=== PATIENT | male | born 1945 | race Caucasian/White ===

== ENCOUNTER 2017-02-11 20:54 | Emergency (ER) | payer MEDICARE ==
[2017-02-11 21:08] VITALS: RESP 18; TEMP 98
[2017-02-11] MEDS ORDERED: MORPHINE SULFATE 4 MG/ML SYRINGE IV STA (21:18)
--- NOTE | 2017-02-11 21:21 | ED ---
General Adult HPI - General Chief complaint: Fall Stated complaint: Fall Time Seen by Provider: 02/11/17 21:01 Source: patient, family, EMS, RN notes reviewed Mode of arrival: EMS Limitations: no limitations - History of Present Illness Initial comments: Patient is a pleasant 71-year-old male presenting to the emergency department following a fall. Patient has had some fatigue and generalized weakness over the past few months, worse the past couple of days. Patient does have chronic right-sided weakness from head and neck injury years ago. Patient states today his right leg gave out on him. Patient did hear a snap and is concerned he may have broken his ankle. Patient states discomfort seems to be getting somewhat worse. Patient did not attempt to ambulate following the injury. Patient states he did hit his head however was minimal. Patient did not lose consciousness. No new weakness since he hit his head. No confusion. - Related Data Home Medications Medication Instructions Recorded Confirmed Ascorbic Acid [Vitamin C] 500 mg PO DAILY 02/11/17 02/11/17 L.acidoph,Paracasei, B.lactis 1 cap PO DAILY 02/11/17 02/11/17 [Probiotic] Allergies Allergy/AdvReac Type Severity Reaction Status Date / Time No Known Allergies Allergy Verified 02/11/17 21:33 Review of Systems ROS Statement: Those systems with pertinent positive or pertinent negative responses have been documented in the HPI. ROS Other: All systems not noted in ROS Statement are negative. Constitutional: Denies: fever Eyes: Denies: eye pain ENT: Denies: ear pain Respiratory: Denies: cough Cardiovascular: Denies: chest pain Endocrine: Reports: fatigue Gastrointestinal: Denies: abdominal pain Genitourinary: Denies: urgency Musculoskeletal: Denies: back pain Skin: Denies: rash Neurological: Denies: headache, confusion Past Medical History Past Medical History: No Reported History, CVA/TIA, Myocardial Infarction ([place]) History of Any Multi-Drug Resistant Organisms: None Reported Past Surgical History: Adenoidectomy Additional Past Surgical History / Comment(s): Spinal Fusion, Past Psychological History: No Psychological Hx Reported Smoking Status: Never smoker Past Alcohol Use History: None Reported Past Drug Use History: None Reported General Exam Limitations: no limitations General appearance: alert, in no apparent distress Head exam: Present: atraumatic Eye exam: Present: normal appearance, PERRL ENT exam: Present: normal oropharynx Neck exam: Present: normal inspection. Absent: tenderness Respiratory exam: Present: normal lung sounds bilaterally Cardiovascular Exam: Present: regular rate, normal rhythm GI/Abdominal exam: Present: soft. Absent: tenderness Extremities exam: Present: tenderness (Diffuse right leg. Mostly at the right ankle. No foot tenderness.) Neurological exam: Present: alert, oriented X3 Expanded Speech: Present: fluid speech Motor strength exam: RUE: 4, LUE: 5, RLE: 3 (Exam limited by pain and chronic weakness), LLE: 5 Psychiatric exam: Present: normal affect, normal mood Skin exam: Absent: rash Course Vital Signs 02/11/17 02/11/17 20:58 22:19 Temperature 98.0 F Pulse Rate 86 89 Respiratory 18 18 Rate Blood Pressure 216/104 196/92 O2 Sat by Pulse 96 98 Oximetry - Reevaluation(s) Reevaluation #1: 02/11/17 21:19 Patient is recommended to have head CT however does refuse this. Patient states he does not necessarily. EKG Findings - EKG Comments: EKG Findings:: Normal sinus rhythm at 82. MN 160. QRS 100. QT 424. QTC 495. Normal axis. Normal QRS. Nonspecific ST-T. Medical Decision Making - Medical Decision Making Patient reevaluated and resting comfortably in bed. Patient updated on results including hyperglycemia. Patient is informed he meets criteria for diagnosis of diabetes. Patient is advised to have close follow-up regarding this for further care including medication and dietary changes. Patient does demonstrate understanding however is refusing follow-up. Patient is strongly advised to do so and explained the risks of uncontrolled diabetes. Patient does demonstrate medical decision making. Patient states he is familiar with diabetes and has had other multiple problems including heart attacks and strokes already. - Lab Data Result diagrams: 02/11/17 21:35 02/11/17 21:35 Lab Results 02/11/17 02/11/17 02/11/17 Range/Units 21:35 21:35 21:35 WBC 10.1 (3.8-10.6) k/uL RBC 4.95 (4.30-5.90) m/uL Hgb 16.2 (13.0-17.5) gm/dL Hct 46.3 (39.0-53.0) % MCV 93.5 (80.0-100.0) fL MCH 32.7 (25.0-35.0) pg MCHC 35.0 (31.0-37.0) g/dL RDW 13.0 (11.5-15.5) % Plt Count 161 (150-450) k/uL Neutrophils % 59 % Lymphocytes % 27 % Monocytes % 8 % Eosinophils % 2 % Basophils % 1 % Neutrophils # 6.0 (1.3-7.7) k/uL Lymphocytes # 2.8 (1.0-4.8) k/uL Monocytes # 0.8 (0-1.0) k/uL Eosinophils # 0.2 (0-0.7) k/uL Basophils # 0.1 (0-0.2) k/uL PT (9.0-12.0) sec INR (<1.1) APTT (22.0-30.0) sec Sodium 135 L (137-145) mmol/L Potassium 4.2 (3.5-5.1) mmol/L Chloride 97 L (98-107) mmol/L Carbon Dioxide 26 (22-30) mmol/L Anion Gap 12 mmol/L BUN 17 (9-20) mg/dL Creatinine 1.00 (0.66-1.25) mg/dL Est GFR (MDRD) Af Amer >60 (>60 ml/min/1.73 sqM) Est GFR (MDRD) Non-Af >60 (>60 ml/min/1.73 sqM) Glucose 257 H (74-99) mg/dL Calcium 9.3 (8.4-10.2) mg/dL Phosphorus 3.0 (2.5-4.5) mg/dL Magnesium 1.8 (1.6-2.3) mg/dL Total Bilirubin 2.8 H (0.2-1.3) mg/dL AST 20 (17-59) U/L ALT 29 (21-72) U/L Alkaline Phosphatase 82 (38-126) U/L Total Creatine Kinase 96 (55-170) U/L CK-MB (CK-2) 1.1 (0.0-2.4) ng/mL CK-MB (CK-2) Rel Index 1.1 Troponin I 0.029 (0.000-0.034) ng/mL Total Protein 7.2 (6.3-8.2) g/dL Albumin 4.0 (3.5-5.0) g/dL TSH 0.825 (0.465-4.680) mIU/L Free T4 1.41 (0.78-2.19) ng/dL Free T3 pg/mL 3.3 (2.8-5.3) pg/ml Urine Color Urine Appearance (Clear) Urine pH (5.0-8.0) Ur Specific [place] (1.001-1.035) Urine Protein (Negative) Urine Glucose (UA) (Negative) Urine Ketones (Negative) Urine Blood (Negative) Urine Nitrite (Negative) Urine Bilirubin (Negative) Urine Urobilinogen (<2.0) mg/dL Ur Leukocyte Esterase (Negative) 02/11/17 02/11/17 Range/Units 21:35 21:35 WBC (3.8-10.6) k/uL RBC (4.30-5.90) m/uL Hgb (13.0-17.5) gm/dL Hct (39.0-53.0) % MCV (80.0-100.0) fL MCH (25.0-35.0) pg MCHC (31.0-37.0) g/dL RDW (11.5-15.5) % Plt Count (150-450) k/uL Neutrophils % % Lymphocytes % % Monocytes % % Eosinophils % % Basophils % % Neutrophils # (1.3-7.7) k/uL Lymphocytes # (1.0-4.8) k/uL Monocytes # (0-1.0) k/uL Eosinophils # (0-0.7) k/uL Basophils # (0-0.2) k/uL PT 10.9 (9.0-12.0) sec INR 1.1 (<1.1) APTT 23.5 (22.0-30.0) sec Sodium (137-145) mmol/L Potassium (3.5-5.1) mmol/L Chloride (98-107) mmol/L Carbon Dioxide (22-30) mmol/L Anion Gap mmol/L BUN (9-20) mg/dL Creatinine (0.66-1.25) mg/dL Est GFR (MDRD) Af Amer (>60 ml/min/1.73 sqM) Est GFR (MDRD) Non-Af (>60 ml/min/1.73 sqM) Glucose (74-99) mg/dL Calcium (8.4-10.2) mg/dL Phosphorus (2.5-4.5) mg/dL Magnesium (1.6-2.3) mg/dL Total Bilirubin (0.2-1.3) mg/dL AST (17-59) U/L ALT (21-72) U/L Alkaline Phosphatase (38-126) U/L Total Creatine Kinase (55-170) U/L CK-MB (CK-2) (0.0-2.4) ng/mL CK-MB (CK-2) Rel Index Troponin I (0.000-0.034) ng/mL Total Protein (6.3-8.2) g/dL Albumin (3.5-5.0) g/dL TSH (0.465-4.680) mIU/L Free T4 (0.78-2.19) ng/dL Free T3 pg/mL (2.8-5.3) pg/ml Urine Color Yellow Urine Appearance Clear (Clear) Urine pH 6.5 (5.0-8.0) Ur Specific [place] 1.007 (1.001-1.035) Urine Protein Trace H (Negative) Urine Glucose (UA) 4+ H (Negative) Urine Ketones 1+ H (Negative) Urine Blood Negative (Negative) Urine Nitrite Negative (Negative) Urine Bilirubin Negative (Negative) Urine Urobilinogen <2.0 (<2.0) mg/dL Ur Leukocyte Esterase Negative (Negative) - Radiology Data Radiology results: image reviewed (Chest x-ray, pelvic x-ray, right femur, right tib-fib, and right x-ray of the ankle show no acute abnormality.) Disposition Clinical Impression: Fall, Hyperglycemia Disposition: HOME SELF-CARE Condition: Stable Instructions: Fall Prevention for Older Adults (ED), Type 2 Diabetes in Adults (ED) Additional Instructions: Please follow-up with primary care physician in the next day or 2 for recheck. It is important that you have better control of your blood sugar and will likely need medication. Please make dietary changes including sugar restriction. Return for increased pain, weakness, worsening symptoms or other concerns. Referrals: None,Stated [Primary Care Provider] - 1-2 days Satish Dawson MD [STAFF PHYSICIAN] - 1-2 days Time of Disposition: 23:07
[2017-02-11 22:07] LABS: Appearance,Urine Clear (Clear); Bilirubin,Urine Negative (Negative); Glucose,Urine (UA) 4+ (Negative); Ketones,Urine 1+ (Negative); Leukocyte Esterase,Urine Negative (Negative); Nitrite,Urine Negative (Negative); PH, Urine 6.5 (5.0-8.0); Protein,Urine Trace (Negative); Specific Gravity,Urine 1.007 (1.001-1.035); UA Billing (MACRO vs. MICRO) CHEM; Urobilinogen,Urine <2.0 mg/dL (<2.0)
[2017-02-11 22:10] LABS: ALT 29 U/L (21-72); AST 20 U/L (17-59); Alkaline Phosphatase 82 U/L (38-126); Anion Gap 12 mmol/L; Blood Urea Nitrogen 17 mg/dL (9-20); Calcium 9.3 mg/dL (8.4-10.2); Carbon Dioxide 26 mmol/L (22-30); Chloride 97 mmol/L (98-107); Glucose 257 mg/dL (74-99); Magnesium 1.8 mg/dL (1.6-2.3); Non-African American GFR(MDRD) >60 (>60 ml/min/1.73 sqM); Potassium 4.2 mmol/L (3.5-5.1); Sodium 135 mmol/L (137-145); Total Bilirubin 2.8 mg/dL (0.2-1.3); Total Protein 7.2 g/dL (6.3-8.2)
[2017-02-11 22:12] LABS: INR 1.1 (<1.1); Partial Thromboplastin Time 23.5 sec (22.0-30.0); Prothrombin Time 10.9 sec (9.0-12.0)
[2017-02-11 22:13] LABS: Basophils # (A) 0.1 k/uL (0-0.2); Basophils % (A) 1 %; CH 33.1; CHCM 35.6; Eosinophils # (A) 0.2 k/uL (0-0.7); Eosinophils % (A) 2 %; HCT 46.3 % (39.0-53.0); HDW 2.72; HGB 16.2 gm/dL (13.0-17.5); Luc # (Auto) 0.34; Luc % (Auto) 3; Lymphocytes # (A) 2.8 k/uL (1.0-4.8); Lymphocytes % (A) 27 %; MCH 32.7 pg (25.0-35.0); MCV 93.5 fL (80.0-100.0); Mean Platelet Volume 7.2; Monocytes # (A) 0.8 k/uL (0-1.0); Monocytes % (A) 8 %; Neutrophils % (A) 59 %; RBC 4.95 m/uL (4.30-5.90); WBC 10.1 k/uL (3.8-10.6)
[2017-02-11 22:31] LABS: Creatine Kinase MB 1.1 ng/mL (0.0-2.4); Troponin I 0.029 ng/mL (0.000-0.034)
--- NOTE | 2017-02-11 22:33 | XR ---
EXAM: XR Chest, 2 Views CLINICAL HISTORY: Reason: Weakness TECHNIQUE: Frontal and lateral views of the chest. COMPARISON: No relevant prior studies available. FINDINGS: Lungs: Pulmonary vasculature is within normal limits. Lungs are clear of focal infiltrates or consolidations. Pleural space: No evidence of pleural effusion or pneumothorax. Heart: Heart size is upper limits of normal. Mediastinum: Unremarkable. Bones/joints: Degenerative changes involve the acromioclavicular joints bilaterally. Vasculature: Thoracic aorta is mildly elongated. IMPRESSION: No evidence of active chest disease.
--- NOTE | 2017-02-11 22:36 | XR ---
EXAM: XR Right Femur, 2 Views CLINICAL HISTORY: Reason: Pain TECHNIQUE: Frontal and lateral views of the right femur. COMPARISON: No relevant prior studies available. FINDINGS: Bones/joints: Mild osteoarthritis involves the right hip. No evidence of femoral fracture or dislocation. Soft tissues: Unremarkable. IMPRESSION: No evidence of fracture or dislocation.
--- NOTE | 2017-02-11 22:39 | XR ---
EXAM: XR Pelvis, 1 View CLINICAL HISTORY: Reason: Pain TECHNIQUE: Frontal view of the pelvis. COMPARISON: No relevant prior studies available. FINDINGS: Bones/joints: Sacroiliac joints are intact bilaterally. No evidence of pelvic fracture or dislocation. No osteolytic, osteoblastic or bony destructive process is identified. Soft tissues: Unremarkable. IMPRESSION: No acute bony joint abnormalities.
--- NOTE | 2017-02-11 22:43 | XR ---
EXAM: XR Right Tibia and Fibula, 2 Views CLINICAL HISTORY: Reason: Pain TECHNIQUE: Frontal and lateral views of the right tibia and fibula. COMPARISON: No relevant prior studies available. FINDINGS: Bones/joints: Tibia and fibula are intact. No evidence of fracture, dislocation or bony erosion. Soft tissues: Diffuse soft tissue edematous changes identified about the calf. There are several scattered soft tissue calcifications in the mid and distal calf. No radiopaque foreign body. IMPRESSION: Diffuse soft tissue swelling about the calf. No evidence of acute fracture or dislocation.
--- NOTE | 2017-02-11 22:45 | XR ---
EXAM: XR Right Ankle Complete, 3 or More Views CLINICAL HISTORY: Reason: Pain TECHNIQUE: Frontal, lateral and oblique views of the right ankle. COMPARISON: No relevant prior studies available. FINDINGS: Bones/joints: No evidence of fracture, dislocation or bony erosion. Mild calcaneal spurring. Soft tissues: Diffuse soft tissue swelling and edematous changes about the ankle. IMPRESSION: Diffuse soft tissue swelling and edematous changes about the ankle. No acute bone or joint abnormalities.
[2017-02-11 23:44] VITALS: BP 181/99; PULSE 83
== END 2017-02-11 23:44 | disposition home or self-care (01) ==
LOC: EC 20:54
DX: R73.9 Hyperglycemia, unspecified (principal); M79.604 Pain in right leg; R53.1 Weakness; R53.83 Other fatigue; Z79.899 Other long term (current) drug therapy; W01.0XXA Fall on same level from slipping, tripping and stumbling without subsequent striking against object, initial encounter; Y92.000 Kitchen of unspecified non-institutional (private) residence as the place of occurrence of the external cause; Y93.G1 Activity, food preparation and clean up
CPT/HCPCS: 99284; 96374; 36415; 93005; 84439; 84481; 80053; 82550; 82553; 83735; 84100; 84443; 84484; 85025; 85610; 85730; 81003; 71020; 72170; 73552; 73590; 73610; J2270

== ENCOUNTER 2017-02-12 00:52 | Emergency (ER) | payer MEDICARE ==
--- NOTE | 2017-02-12 01:13 | ED ---
CPR HPI - General Stated Complaint: arrest Source: family, EMS Mode of arrival: EMS Limitations: altered mental status (Unresponsive) - History of Present Illness Initial Comments: This patient is a 71-year-old man who is brought in by EMS after he collapsed at home and became unresponsive. The history is given from EMS and from the patient's partner of 6 years. He reportedly was seen here this afternoon for a right ankle injury. It is reported that he had tripped, twisted his right ankle , and became concerned that it may be broken, as he was having a hard time putting any weight on it. He was brought by ambulance here, evaluated including x-rays which were reportedly negative for a fracture, and he was discharged. The patient went home and then he was having a hard time climbing stairs there due to the ankle pain. After trying to get up the stairs for a number of minutes she reportedly slumped down and then became unresponsive. On arrival EMS stated that the patient appeared to be in asystole. They started ACLS protocol. They started CPR and administered epinephrine, 3 times, and then after the patient developed V. fib the patient had defibrillation twice. At that point the patient was found to be in pulseless electrical activity. The patient also had Perfecto tube placed. Patient was transported here. The time down is now over 30 minutes on arrival here. MD Complaint: collapsed during activity -: minute(s) Place: home Bystander CPR Performed: No Number of Shocks Delivered: 2 Initial Findings in the Field: unresponsive, no respirations, no pulse ROSC in the Field: No Associated Injuries: No Treatments Prior to Arrival: intubation (With Perfecto tube), BMV, chest compressions, defibrillated shocks # (2), epinephrine mgs # (3) - Related Data Home Medications Medication Instructions Recorded Confirmed Ascorbic Acid [Vitamin C] 500 mg PO DAILY 02/11/17 02/11/17 L.acidoph,Paracasei, B.lactis 1 cap PO DAILY 02/11/17 02/11/17 [Probiotic] Allergies Allergy/AdvReac Type Severity Reaction Status Date / Time No Known Allergies Allergy Verified 02/11/17 21:33 Review of Systems ROS Statement: Those systems with pertinent positive or pertinent negative responses have been documented in the HPI. ROS Other: All systems not noted in ROS Statement are negative. Limitations: ROS unobtainable due to patients medical condition Past Medical History Past Medical History: No Reported History, CVA/TIA, Myocardial Infarction ([place]) History of Any Multi-Drug Resistant Organisms: None Reported Past Surgical History: Adenoidectomy Additional Past Surgical History / Comment(s): Spinal Fusion, Past Psychological History: No Psychological Hx Reported Smoking Status: Never smoker Past Alcohol Use History: None Reported Past Drug Use History: None Reported General Exam General appearance: obese, other (Unresponsive) Head exam: Present: atraumatic, normocephalic Pupils: Present: other (Pupils are approximately 6 mm bilateral and unreactive. There is corneal drying) ENT exam: Present: other (There is a Perfecto tube present) Neck exam: Present: normal inspection, other (There is no evidence of trauma. No bony deformity or step-off) Respiratory exam: Present: rhonchi, other (Auscultation during bagging reveals bilateral rhonchi. There is no spontaneous inspiratory effort.) Cardiovascular Exam: Present: other (There is no palpable PMI. There are no palpable pulses at the radial, femoral, or carotid areas. No cardiac sounds.) GI/Abdominal exam: Present: soft, other (No evidence of trauma. No bowel sounds ). Absent: guarding, rigid, mass Extremities exam: Present: other (No evidence of trauma) Back exam: Present: other (No evidence of trauma. No step-off or deformity) Neurological exam: Present: other (GCS is 3. No neurologic signs of life. No reflexes.) Skin exam: Present: dry, intact, cyanosis. Absent: rash Course - Reevaluation(s) Reevaluation #1: 02/12/17 01:53 Additional history reveals that the patient has not really had a physician for the past few years. His last real interaction with healthcare system was being admitted at [facility] about 2 years ago for some sort of heart problem. The patient spent 2 or 3 days in the hospital and then had gone to a rehabilitation facility for about a week. He then briefly was on antihypertensive, Coumadin, but he reportedly improved such that those medicines were stopped. He had not been seeing a physician for the past couple of years. Medical Decision Making - Medical Decision Making Patient is brought directly to the trauma resuscitation bay and transferred over to our stretcher placed on monitors and ACLS continued. During the transfer over to the bed the EMS line was dislodged and new IV was started immediately. Fluids and epinephrine given. CPR continued. At the next Halt in the CPR the the rhythm is asystole. Given the long down time with no response to medications, the patient is pronounced at 0057. I did discuss the case with the patient's partner and also with the medical technologist prn. Disposition Clinical Impression: Cardiac arrest Disposition: Condition: Undetermined Referrals: None,Stated [Primary Care Provider] - 1-2 days Preliminary Cause of : cardiopulmonary arrest
== END 2017-02-12 03:02 | disposition expired ==
LOC: EC 00:52
DX: I46.9 Cardiac arrest, cause unspecified (principal); R41.82 Altered mental status, unspecified; R06.89 Other abnormalities of breathing; E66.9 Obesity, unspecified; Z79.899 Other long term (current) drug therapy; Z68.39 Body mass index [BMI] 39.0-39.9, adult
CPT/HCPCS: 92950; 99285